=== PATIENT | female | born 1945 | race American Indian/Alaskan Native ===

== ENCOUNTER 2016-07-28 12:34 | Emergency (ER) | payer MEDICARE, MEDICAID ==
[2016-07-28 12:34] VITALS: BMI 23.8
[2016-07-28 13:19] VITALS: O2SAT 98
--- NOTE | 2016-07-28 15:35 | C.PDOC ---
History Of Present Illness 71-year-old female, PMHx includes Hypertension, Hypercholesterolemia, depression , anxiety, Fallopian CA and Breast CA, presents to the emergency department with complaints of oral thrush and shortness of breath. Patient states that for the past few days, she has been experiencing shortness of breath because her tongue gets stuck to the roof of her mouth. For the past several weeks, patient wakes up with pain to submandibular region due to her tongue. Pt notes she was given a mouth wash, which she is using with minimal relief. Denies fevers, chills, chest pain, back pain, dizziness or any other associated symptoms. No other complaints at this time. Patient notes that she was seen by her oncologist , Dr Johnston yesterday. Time Seen by Provider: 07/28/16 14:05 Chief Complaint (Nursing): GI Problem History Per: Patient History/Exam Limitations: no limitations Onset/Duration Of Symptoms: Days Current Symptoms Are (Timing): Still Present Severity: Moderate Past Medical History Reviewed: Historical Data, Nursing Documentation, Vital Signs Vital Signs: Last Vital Signs Temp 97.4 F L 07/28/16 16:05 Pulse 68 07/28/16 16:05 Resp 18 07/28/16 16:05 BP 142/82 07/28/16 16:05 Pulse Ox 98 07/30/16 11:49 - Medical History PMH: Anxiety, Arthritis, COPD (heavy smoker), Depression, HTN, Hypercholesterolemia, Malignancy (BREAST) Denies: Chronic Kidney Disease Family History: States: Unknown Family Hx - Social History Hx Tobacco Use: Yes Hx Alcohol Use: No Hx Substance Use: No - Immunization History Hx Tetanus Toxoid Vaccination: No Hx Influenza Vaccination: No Hx Pneumococcal Vaccination: No Review Of Systems Except As Marked, All Systems Reviewed And Found Negative. Constitutional: Negative for: Fever, Chills Respiratory: Positive for: Shortness of Breath Gastrointestinal: Positive for: Vomiting Musculoskeletal: Negative for: Neck Pain, Back Pain Skin: Negative for: Rash Neurological: Negative for: Weakness, Numbness, Headache, Dizziness Physical Exam - Physical Exam Appears: Non-toxic, No Acute Distress, Unkempt, Other (thin, frail.) Skin: Warm, Dry, No Rash Head: Atraumatic, Normacephalic Eye(s): bilateral: Normal Inspection, PERRL Nose: Normal Tongue: Other ((+)thrush) Teeth: Other (poor dental hygiene.) Cardiovascular: Murmur Respiratory: Normal Breath Sounds, No Accessory Muscle Use Gastrointestinal/Abdominal: Soft, No Tenderness Extremity: Normal ROM Neurological/Psych: Oriented x3, Normal Speech ED Course And Treatment O2 Sat by Pulse Oximetry: 98 Disposition Counseled Patient/Family Regarding: Diagnosis, Need For Followup, Rx Given - Disposition Disposition: HOME/ ROUTINE Disposition Time: 15:48 Condition: STABLE Additional Instructions: Follow up with your doctor this week. Prescriptions: Fluconazole 200 mg PO DAILY #14 tablet Fluconazole 200 mg PO DAILY #14 tablet Instructions: Oral Candidiasis (ED) Forms: General Discharge Instructions - POA Present On Arrival: None - Clinical Impression Clinical Impression: Candidiasis of mouth and esophagus - Scribe Statement The provider has reviewed the documentation as recorded by the Shubham Robison All medical record entries made by the Silkeibjudith were at my direction and personally dictated by me. I have reviewed the chart and agree that the record accurately reflects my personal performance of the history, physical exam, medical decision making, and the department course for this patient. I have also personally directed, reviewed, and agree with the discharge instructions and disposition.
[2016-07-28 16:12] VITALS: BP 142/82; PULSE 68; RESP 18; TEMP 97.4
== END 2016-07-28 16:08 | disposition home or self-care (01) ==
LOC: C.ER 12:34
DX: B37.0 Candidal stomatitis (principal); B37.81 Candidal esophagitis

== ENCOUNTER 2016-10-13 21:49 | Observation (INO) | payer MEDICARE, MEDICAID ==
[2016-10-13 21:49] VITALS: BMI 23.8
--- NOTE | 2016-10-13 23:49 | C.PDOC ---
Time Seen by Provider: 10/13/16 23:49 Chief Complaint (Nursing): Anxiety Past Medical History Vital Signs: Last Vital Signs Temp 97.5 F L 10/13/16 21:59 Pulse 79 10/13/16 21:59 Resp 24 10/13/16 21:59 BP 152/67 H 10/13/16 21:59 Pulse Ox 100 10/13/16 21:59 - Medical History PMH: Anxiety, Arthritis, COPD (heavy smoker), Depression, HTN, Hypercholesterolemia, Malignancy (BREAST) Denies: Chronic Kidney Disease Family History: States: Unknown Family Hx - Social History Hx Tobacco Use: Yes Hx Alcohol Use: No Hx Substance Use: No - Immunization History Hx Tetanus Toxoid Vaccination: No Hx Influenza Vaccination: No Hx Pneumococcal Vaccination: No ED Course And Treatment O2 Sat by Pulse Oximetry: 100 Disposition Counseled Patient/Family Regarding: Studies Performed, Diagnosis - Disposition Disposition Time: 23:49
[2016-10-14 00:37] LABS: BASO # 0.1 K/uL (0.0-0.2); BASO % 1.2 % (0.0-2.0); EOS # 0.2 K/uL (0.0-0.7); EOS % 3.1 % (0.0-4.0); HEMATOCRIT 39.3 % (34.0-47.0); LYMPH # 2.5 K/uL (1.0-4.3); LYMPH % 33.7 % (20.0-40.0); MEAN CELL VOLUME 88.4 fL (81.0-99.0); MEAN CORPUSCULAR HEMOGLOBIN 30.1 pg (27.0-31.0); MEAN CORPUSCULAR HGB CONC 34.1 g/dL (33.0-37.0); MEAN PLATELET VOLUME 7.2 fL (7.2-11.7); MONO # 0.5 K/uL (0.0-0.8); MONO % 7.3 % (0.0-10.0); WHITE BLOOD COUNT 7.5 K/uL (4.8-10.8)
--- NOTE | 2016-10-14 00:45 | C.PDOC ---
History Of Present Illness <Laith Norris - Last Filed: 10/14/16 00:42> <Jose Buenrostro - Last Filed: 10/14/16 03:25> 71 y/o F c PMHx anxiety p/w palpitations and leg burning x 3 hours. Patient states that she was at home when she suddenly began having upper leg burning paresthesias and then began having palpitations. She denies chest pain, dyspnea , nausea, vomiting, motor weakness. (Laith Norris) <Laith Norris - Last Filed: 10/14/16 00:42> <Jose Buenrostro - Last Filed: 10/14/16 03:25> Time Seen by Provider: 10/13/16 23:49 Chief Complaint (Nursing): Anxiety Past Medical History - Medical History PMH: Anxiety, Arthritis, COPD (heavy smoker), Depression, HTN, Hypercholesterolemia, Malignancy (BREAST) Denies: Chronic Kidney Disease Family History: States: Unknown Family Hx - Social History Hx Tobacco Use: Yes Hx Alcohol Use: No Hx Substance Use: No - Immunization History Hx Tetanus Toxoid Vaccination: No Hx Influenza Vaccination: No Hx Pneumococcal Vaccination: No <Laith Norris - Last Filed: 10/14/16 00:42> Reviewed: Historical Data, Nursing Documentation, Vital Signs <Jose Buenrostro - Last Filed: 10/14/16 03:25> Vital Signs: Last Vital Signs Temp 97.4 F L 10/14/16 02:48 Pulse 56 L 10/14/16 02:48 Resp 18 10/14/16 02:48 BP 137/61 10/14/16 02:48 Pulse Ox 100 10/14/16 02:48 Review Of Systems Except As Marked, All Systems Reviewed And Found Negative. Constitutional: Negative for: Fever Cardiovascular: Negative for: Chest Pain <Laith Norris - Last Filed: 10/14/16 00:42> Physical Exam - Physical Exam Appears: No Acute Distress Skin: Normal Color, No Rash Head: Atraumatic, Normacephalic Eye(s): bilateral: PERRL Oral Mucosa: Moist Neck: Normal, Supple Cardiovascular: Rhythm Regular Respiratory: No Accessory Muscle Use Gastrointestinal/Abdominal: Soft, No Tenderness Back: No CVA Tenderness Extremity: Normal ROM, No Tenderness, No Pedal Edema, No Deformity, No Swelling Pulses: Left Radial: Normal, Right Radial: Normal Neurological/Psych: Oriented x3 <Laith Norris - Last Filed: 10/14/16 00:42> ED Course And Treatment - Laboratory Results Result Diagrams: 10/14/16 00:34 O2 Sat by Pulse Oximetry: 100 <Laith Norris - Last Filed: 10/14/16 00:42> - Laboratory Results Result Diagrams: 10/14/16 00:34 10/14/16 00:34 ECG: Interpreted By Me, Viewed By Me ECG Rhythm: Sinus Tachycardia (112), Nonspecific Changes (frequent pvc's) Pulse Ox Interpretation: Normal - Radiology CXR: Interpreted by Me, Viewed By Me CXR Interpretation: No: Infiltrates, Fracture, Pnemothorax <Jose Buenrostro - Last Filed: 10/14/16 03:25> Medical Decision Making <Laith Norris - Last Filed: 10/14/16 00:42> <PorterJesenia - Last Filed: 10/14/16 03:25> Medical Decision Making: EKG shows sinus rhythm 112, frequent PVCs, no ST elevations. At bedside, HR normal, continues to have PVCs. Patient states palpitations are gone. Upper leg burning feeling persists. Will check electrolytes, keep on telemetry. Will sign out to ER night team at end of shift. Patient without SI/HI /hallucinations. (Laith Norris) Disposition <MyrnaLaith Howe - Last Filed: 10/14/16 00:42> Discussed With : Blayne Quintero Comment: accepted the pt on his service and took over the care at 3:24 AM Doctor Will See Patient In The: ED Counseled Patient/Family Regarding: Studies Performed, Diagnosis, Need For Followup - Disposition Disposition Time: 02:00 - POA Present On Arrival: Poor Glycemic Control <PorterJeseniamayo - Last Filed: 10/14/16 03:25> - Disposition Disposition: HOSPITALIZED Condition: FAIR - Clinical Impression Clinical Impression: Anxiety, Palpitations, Chest pain Decision To Admit <MyrnaLaith Howe - Last Filed: 10/14/16 00:42> - Pt Status Changed To: Hospital Disposition Of: Observation - . Bed Request Type: Telemetry Admitting Physician: Blayne Quintero <Jose Buenrostro - Last Filed: 10/14/16 03:25> - . Patient Diagnosis: Anxiety, Palpitations, Chest pain
[2016-10-14 00:50] LABS: CHLORIDE 103 mmol/L (98-107)
[2016-10-14 00:51] LABS: POTASSIUM 3.1 mmol/L (3.6-5.2); SODIUM 137 mmol/L (132-148)
[2016-10-14 00:53] LABS: ALB/GLOB RATIO 1.3 (1.0-2.1); ALKALINE PHOSPHATASE 111 U/L (38-126); AST/SGOT 20 U/L (14-36); BILIRUBIN,TOTAL 0.4 mg/dL (0.2-1.3); BLOOD UREA NITROGEN 11 mg/dL (7-17); CARBON DIOXIDE 24 mmol/L (22-30); GFR AFRICAN-AMERICAN > 60; TOTAL PROTEIN 6.7 g/dL (6.3-8.3)
[2016-10-14 00:54] LABS: ALT/SGPT 11 U/L (9-52); CALCIUM 8.9 mg/dl (8.6-10.4); GLUCOSE,RANDOM 106 mg/dL (65-105); MAGNESIUM 1.9 mg/dL (1.6-2.3); PHOSPHOROUS 3.7 mg/dL (2.5-4.5)
[2016-10-14] MEDS ORDERED: Potassium Chloride 10 mEq ER Tab PO STA (01:56)
[2016-10-14] MEDS ORDERED: Potassium Chloride 10 mEq ER Tab PO ONE (02:32)
--- NOTE | 2016-10-14 03:48 | CP.PCM.HP ---
<Elizabeth Reeder - Last Filed: 10/14/16 05:33> History of Present Illness - History of Present Illness History of Present Illness: CC - " I am worried about my leg pain and palpitations" HPI - 71 y/o F c PMHx as listed below complains of anxiety p/w palpitations and leg burning x 3 hours. Patient states that she was at home in bed watching tv when she suddenly began having upper leg burning paresthesias and then began having palpitations. She said her legs "felt hot from the inside" from her knees up to her hips. She denies weakness, numbness or tingling. She got worried about this can then felt like her heart was beating fast and irregular. She then called [facility] and asked them what to do and they told her to come to the emergency room. Upon arrival to the emergency room these symptoms resolved. 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 She denies chest pain, fever/chills, headache, dyspnea, nausea, vomiting, abd pain, diarrhea/constipation or urinary complaints. She states she recently had a D/C done and they "left something in there" so she is planning to go back to surgery with Dr. Salazar to remove this item. She was unable to name what this item was. She reports being under a lot of stress recently. She states that she was diagnosed with a cardiac murmur at but never was on cardiac medication and never had surgery for this. She has never had a cardiac cath or a stress test performed. PMHx - anxiety, depression, arthritis, COPD, hypertension, hyperlipidemia, breast ca (diagnosed 2000 had surg, chemo completed) Surg - mastectomy L sided can't remember year (lung was punctured which led to increased hospital stay in intensive care), fallopian tube removal 2002 Meds - Busipirone 5mg PO HS, Amlodipine 5mg PO daily, Crestor 5 mg PO HS, Paxil 20mg PO daily, Klonipin 0.5mg PO QID, Restasis eye drops Allergies- aspirin (nausea), ibuprofen, penicillin, iodixanol, toradol amoxicillin FamHx - 2 of her sisters has strokes, father had "heart problems" mother had breast cancer, another sister has breat cancer Social - denies alcohol uses, has smoked a pack a day for 23 years has quit on and off, denies drug use. lives alone in [facility] Psych - states she is very anxious, her mother in May and her sister is dying of cancer now PMD: Dr. 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 absent: Chest Pain, Chest Pain at Rest, Pedal Edema, Syncope - Respiratory Respiratory: absent: Cough, Dyspnea on Exertion - Gastrointestinal Gastrointestinal: absent: Abdominal Pain, Constipation, Diarrhea, Nausea, Vomiting - Genitourinary Genitourinary: absent: Change in Urinary Stream, Difficulty Urinating - Musculoskeletal Musculoskeletal: absent: Numbness, Tingling - Neurological Neurological: absent: Dizziness Past Patient History - Infectious Disease Hx of Infectious Diseases: None - Past Social History Smoking Status: Light Smoker < 10 Cigarettes Daily - CARDIAC Hx Hypercholesterolemia: Yes Hx Hypertension: Yes - PULMONARY Hx Chronic Obstructive Pulmonary Disease (COPD): Yes (heavy smoker) - NEUROLOGICAL Hx Neurological Disorder: No - HEENT Hx HEENT Problems: No - RENAL Hx Chronic Kidney Disease: No - ENDOCRINE/METABOLIC Hx Endocrine Disorders: No - HEMATOLOGICAL/ONCOLOGICAL Hx Blood Disorders: Yes (SEE COMMENT) Hx Cancer: Yes (LEFT BREAST CA) Other/Comment: Breast CA with chemotherapy () - INTEGUMENTARY Hx Dermatological Problems: Yes (SEE COMMENT) Other/Comment: treated for 3 weeks with a cream mometasone furoate 1% due to rash in her arms bilaterraly s/p bed bug fumigationpt has no rash noted on arms at this time - MUSCULOSKELETAL/RHEUMATOLOGICAL Hx Arthritis: Yes - GASTROINTESTINAL Hx Gastrointestinal Disorders: No - GENITOURINARY/GYNECOLOGICAL Hx Genitourinary Disorders: No - PSYCHIATRIC Hx Anxiety: Yes Hx Depression: Yes Hx Substance Use: No - SURGICAL HISTORY Hx Surgeries: Yes Hx Hysterectomy: Yes Hx Mastectomy: Yes (LEFT BREAST) - ANESTHESIA Hx Anesthesia: Yes Hx Anesthesia Reactions: No Hx Malignant Hyperthermia: No Meds Allergies/Adverse Reactions: Allergies Allergy/AdvReac Type Severity Reaction Status Date / Time amoxicillin Allergy Verified 10/13/16 21:58 aspirin Allergy NAUSEA Verified 07/28/16 13:55 ibuprofen Allergy DIARRHEA Verified 07/28/16 13:55 iodixanol [From Visipaque] Allergy Verified 07/28/16 13:55 ketorolac tromethamine Allergy VOMITING Verified 07/28/16 13:55 [From Toradol] Penicillins Allergy RASH Verified 07/28/16 13:55 Physical Exam - Constitutional Appears: Non-toxic, No Acute Distress - Head Exam Head Exam: ATRAUMATIC, NORMAL INSPECTION - Eye Exam Eye Exam: EOMI, Normal appearance, PERRL Pupil Exam: NORMAL ACCOMODATION - ENT Exam ENT Exam: Mucous Membranes Dry - Respiratory Exam Respiratory Exam: Clear to Auscultation Bilateral, NORMAL BREATHING PATTERN. absent: Rales, Rhonchi, Wheezes, Respiratory Distress - Cardiovascular Exam Cardiovascular Exam: REGULAR RHYTHM, +S1, +S2 - GI/Abdominal Exam GI & Abdominal Exam: Normal Bowel Sounds, Soft. absent: Distended, Firm, Guarding, Tenderness - Extremities Exam Extremities exam: Positive for: normal inspection. Negative for: calf tenderness, pedal edema - Back Exam Back exam: NORMAL INSPECTION. absent: CVA tenderness (L), CVA tenderness (R), paraspinal tenderness - Neurological Exam Neurological exam: Alert, Normal Gait, Oriented x3 - Psychiatric Exam Psychiatric exam: Anxious, Normal Affect, Normal Mood Results - Vital Signs Recent Vital Signs: Last Vital Signs Temp 97.4 F L 10/14/16 02:48 Pulse 56 L 10/14/16 02:48 Resp 18 10/14/16 02:48 BP 137/61 10/14/16 02:48 Pulse Ox 100 10/14/16 02:48 - Labs Result Diagrams: 10/14/16 00:34 10/14/16 00:34 Labs: Laboratory Results - last 24 hr 10/14/16 10/14/16 00:34 00:34 WBC 7.5 RBC 4.45 Hgb 13.4 Hct 39.3 MCV 88.4 MCH 30.1 MCHC 34.1 RDW 15.0 H Plt Count 338 MPV 7.2 Neut % (Auto) 54.7 Lymph % (Auto) 33.7 [place] % (Auto) 7.3 Eos % (Auto) 3.1 Baso % (Auto) 1.2 Neut # 4.1 Lymph # 2.5 [place] # 0.5 Eos # 0.2 Baso # 0.1 Sodium 137 Potassium 3.1 L Chloride 103 Carbon Dioxide 24 Anion Gap 13 BUN 11 Creatinine 0.7 Est GFR ( Amer) > 60 Est GFR (Non-Af Amer) > 60 Random Glucose 106 H Calcium 8.9 Phosphorus 3.7 Magnesium 1.9 Total Bilirubin 0.4 AST 20 ALT 11 Alkaline Phosphatase 111 Total Creatine Kinase 109 Troponin I 0.0170 Total Protein 6.7 Albumin 3.8 Globulin 2.9 Albumin/Globulin Ratio 1.3 Assessment & Plan - Assessment and Plan (Free Text) Assessment: Palpitations Resolved in ED EKG - sinus tach with PVCs Chest X ray - no acute disease Troponin was negative, will follow up with trops every 6 hours Echo from 08.10 showed EF 55-60%, mild pulmonary hypertension, mild aortic regurg , trace yris regurg f/u am labs, lipid panel, tsh, hba1c consider cardiology consult for stress test Hypokalemia K 3.1 Mg 1.9 Given 20 meq KCL in the ED, will given another 40meq orally to replace HTN Amlodipine 5mg PO daily Hyperlipidemia Crestor 5mg PO HS Anxiety/depression Busipirone 5mg PO HS Paxil 20mg PO daily Klonipin 0.5 mg PO QID Prophylactic Measures Pepcid 20mg PO BID SCDs Heart healthy diet Monitor on telemetry <Blayne Quintero - Last Filed: 10/14/16 06:33> Results - Vital Signs Recent Vital Signs: Last Vital Signs Temp 97.6 F 10/14/16 04:44 Pulse 54 L 10/14/16 04:44 Resp 20 10/14/16 04:44 BP 153/63 H 10/14/16 04:44 Pulse Ox 100 10/14/16 04:44 - Labs Result Diagrams: 10/14/16 00:34 10/14/16 00:34 Assessment & Plan - Date & Time Date: 10/14/16 (I have seen and examined the patient. I agree with the findings and plan of care as documented by Dr. Reeder. Patient with palpitations. Denies chest pain. ROMIx3 with EKG. Monitor on tele. Consult to cardio. Replete potassium for hypokalemia. Amlodipine for history of hypertension. Monitor for acute changes.) Time: 06:32 Attending/Attestation - Attestation I have personally seen and examined this patient.: Yes I have fully participated in the care of the patient.: Yes I have reviewed all pertinent clinical information: Yes
[2016-10-14] MEDS ORDERED: Potassium Chloride 20 mEq ER Tab PO STA ×2 (05:47→10:18)
--- NOTE | 2016-10-14 09:01 | RAD ---
HISTORY: palpitations COMPARISON: 02/13/2016 FINDINGS: LUNGS: No active pulmonary disease. PLEURA: No significant pleural effusion identified, no pneumothorax apparent. CARDIOVASCULAR: Normal. OSSEOUS STRUCTURES: No significant abnormalities. VISUALIZED UPPER ABDOMEN: Normal. OTHER FINDINGS: None. IMPRESSION: No active disease.
[2016-10-14 11:20] LABS: BASO # 0.1 K/uL (0.0-0.2); BASO % 1.2 % (0.0-2.0); EOS # 0.2 K/uL (0.0-0.7); EOS % 2.9 % (0.0-4.0); HEMATOCRIT 39.6 % (34.0-47.0); LYMPH # 2.1 K/uL (1.0-4.3); LYMPH % 33.7 % (20.0-40.0); MEAN CELL VOLUME 87.7 fL (81.0-99.0); MEAN CORPUSCULAR HEMOGLOBIN 29.8 pg (27.0-31.0); MEAN PLATELET VOLUME 7.3 fL (7.2-11.7); MONO # 0.5 K/uL (0.0-0.8); RED CELL DISTRIBUTION WIDTH 14.8 % (11.5-14.5); WHITE BLOOD COUNT 6.1 K/uL (4.8-10.8)
[2016-10-14 11:27] LABS: CHLORIDE 103 mmol/L (98-107); POTASSIUM 3.5 mmol/L (3.6-5.2); SODIUM 136 mmol/L (132-148)
[2016-10-14 11:29] LABS: ALB/GLOB RATIO 1.1 (1.0-2.1); AST/SGOT 20 U/L (14-36); BILIRUBIN,TOTAL 0.4 mg/dL (0.2-1.3); CARBON DIOXIDE 25 mmol/L (22-30); CHOLESTEROL 207 mg/dL (0-199); GFR AFRICAN-AMERICAN > 60; TOTAL PROTEIN 6.9 g/dL (6.3-8.3)
[2016-10-14 11:30] LABS: ALKALINE PHOSPHATASE 104 U/L (38-126); ALT/SGPT 19 U/L (9-52); BLOOD UREA NITROGEN 8 mg/dL (7-17); GLUCOSE,RANDOM 93 mg/dL (65-105); PHOSPHOROUS 3.1 mg/dL (2.5-4.5)
[2016-10-14 12:34] LABS: THYROID STIMULATING HORMONE 2.36 mIU/L (0.46-4.68)
--- NOTE | 2016-10-14 13:03 | CP.PCM.CON ---
<Marcel Tariq - Last Filed: 10/14/16 13:04> History of Present Illness - History of Present Illness History of Present Illness: Consult Note for Dr. Carey Reason for consult: Palpitations 71 y/o F with PMH of anxiety, depression, HTN, HLD, COPD, breast, and ovarian cancer presented to the ED on 10/13/16 for initial complaint of burning in the legs and palpitations. Pt states she was at home watching TV when all of sudden she began to feel severe burning down her legs bilaterally. At this time, she began developing an increased heart rate and palpitations. Pt became worried and called her local pharmacy who directed her to the emergency room. In the ED , the patient states her palpitations resolved on its own. Initial EKG showed sinus tachycardia with PVC's. Repeat EKG the next morning showed sinus bradycardia with no PVC's. Initial troponin was also negative. Pt does admit to being more stressed than usual lately. Denies CP, SOB, N/V/D, fever, chills, recent illnesses. PMH: Anxiety, depression, HTN, HLD, COPD, breast, and ovarian cancer Surgical hx: Left sided mastectomy Social Hx: Smoked 1 ppd x 20 years. Denies alcohol or illicit drug use FMH: Cardiac issues, unsure of specific diagnoses Medication: See MAR Allergies: amoxicillin, ASA, ibuprofen, iodixanol, toradol, penicillin Review of Systems - Constitutional Constitutional: absent: Fatigue, Fever, Lethargy - EENT Eyes: absent: Blurred Vision, Change in Vision - Cardiovascular Cardiovascular: Palpitations. absent: Chest Pain, Irregular Heart Rhythm - Respiratory Respiratory: absent: Cough, Dyspnea - Gastrointestinal Gastrointestinal: absent: Abdominal Pain, Diarrhea, Vomiting - Genitourinary Genitourinary: absent: Dysuria, Hematuria - Integumentary Integumentary: absent: New Lesions, Rash - Neurological Neurological: Numbness, Radicular Pain, Tingling. absent: Syncope Past Patient History - Infectious Disease Hx of Infectious Diseases: None - Past Social History Smoking Status: Light Smoker < 10 Cigarettes Daily - CARDIAC Hx Hypercholesterolemia: Yes Hx Hypertension: Yes - PULMONARY Hx Chronic Obstructive Pulmonary Disease (COPD): Yes (heavy smoker) - NEUROLOGICAL Hx Neurological Disorder: No - HEENT Hx HEENT Problems: No - RENAL Hx Chronic Kidney Disease: No - ENDOCRINE/METABOLIC Hx Endocrine Disorders: No - HEMATOLOGICAL/ONCOLOGICAL Hx Blood Disorders: Yes (SEE COMMENT) Hx Cancer: Yes (LEFT BREAST CA) Other/Comment: Breast CA with chemotherapy () - INTEGUMENTARY Hx Dermatological Problems: Yes (SEE COMMENT) Other/Comment: treated for 3 weeks with a cream mometasone furoate 1% due to rash in her arms bilaterraly s/p bed bug fumigationpt has no rash noted on arms at this time - MUSCULOSKELETAL/RHEUMATOLOGICAL Hx Falls: No - GASTROINTESTINAL Hx Gastrointestinal Disorders: No - GENITOURINARY/GYNECOLOGICAL Hx Genitourinary Disorders: No - PSYCHIATRIC Hx Substance Use: No - SURGICAL HISTORY Hx Surgeries: Yes Hx Hysterectomy: Yes Hx Mastectomy: Yes (LEFT BREAST) - ANESTHESIA Hx Anesthesia: Yes Hx Anesthesia Reactions: No Hx Malignant Hyperthermia: No Meds Allergies/Adverse Reactions: Allergies Allergy/AdvReac Type Severity Reaction Status Date / Time amoxicillin Allergy Verified 10/13/16 21:58 aspirin Allergy NAUSEA Verified 07/28/16 13:55 ibuprofen Allergy DIARRHEA Verified 07/28/16 13:55 iodixanol [From Visipaque] Allergy Verified 07/28/16 13:55 ketorolac tromethamine Allergy VOMITING Verified 07/28/16 13:55 [From Toradol] Penicillins Allergy RASH Verified 07/28/16 13:55 - Medications Medications: Current Medications Amlodipine Besylate (Norvasc) 5 mg PO HS [facility] Buspirone HCl (Buspar) 5 mg PO HS [facility] Clonazepam (Klonopin) 0.5 mg PO QID [facility] Last Admin: 10/14/16 09:28 Dose: Not Given Famotidine (Pepcid) 20 mg PO BID [facility] Last Admin: 10/14/16 09:29 Dose: Not Given Paroxetine HCl (Paxil) 20 mg PO DAILY [facility] Last Admin: 10/14/16 09:27 Dose: 20 mg Rosuvastatin Calcium (Crestor) 5 mg PO HS [facility] Physical Exam - Constitutional Appears: Well, No Acute Distress - Head Exam Head Exam: ATRAUMATIC, NORMAL INSPECTION, NORMOCEPHALIC - ENT Exam ENT Exam: Mucous Membranes Moist - Respiratory Exam Respiratory Exam: Clear to Auscultation Bilateral, NORMAL BREATHING PATTERN. absent: Rales, Rhonchi - Cardiovascular Exam Cardiovascular Exam: RRR, +S1, +S2 - GI/Abdominal Exam GI & Abdominal Exam: Normal Bowel Sounds, Soft. absent: Tenderness - Extremities Exam Extremities exam: Positive for: normal inspection - Neurological Exam Neurological exam: Alert, Oriented x3 - Skin Skin Exam: Intact, Normal Color, Warm Results - Vital Signs Recent Vital Signs: Last Vital Signs Temp 97.5 F L 10/14/16 08:57 Pulse 58 L 10/14/16 08:57 Resp 20 10/14/16 08:57 BP 147/60 10/14/16 08:57 Pulse Ox 100 10/14/16 08:57 - Labs Result Diagrams: 10/14/16 11:07 10/14/16 11:07 Labs: Laboratory Results - last 24 hr 10/14/16 10/14/16 10/14/16 11:07 11:07 11:07 WBC 6.1 RBC 4.51 Hgb 13.4 Hct 39.6 MCV 87.7 MCH 29.8 MCHC 34.0 RDW 14.8 H Plt Count 372 MPV 7.3 Neut % (Auto) 54.2 Lymph % (Auto) 33.7 Hubbard % (Auto) 8.0 Eos % (Auto) 2.9 Baso % (Auto) 1.2 Neut # 3.3 Lymph # 2.1 Hubbard # 0.5 Eos # 0.2 Baso # 0.1 Sodium 136 Potassium 3.5 L Chloride 103 Carbon Dioxide 25 Anion Gap 12 BUN 8 Creatinine 0.6 L Est GFR ( Amer) > 60 Est GFR (Non-Af Amer) > 60 Random Glucose 93 Hemoglobin A1c Calcium 9.0 Phosphorus 3.1 Magnesium 2.0 Total Bilirubin 0.4 AST 20 ALT 19 Alkaline Phosphatase 104 Total Protein 6.9 Albumin 3.6 Globulin 3.3 Albumin/Globulin Ratio 1.1 Triglycerides 59 Cholesterol 207 H LDL Cholesterol Direct 132 H HDL Cholesterol 51 Free T4 0.82 TSH 3rd Generation 2.36 10/14/16 11:07 WBC RBC Hgb Hct MCV MCH MCHC RDW Plt Count MPV Neut % (Auto) Lymph % (Auto) Hubbard % (Auto) Eos % (Auto) Baso % (Auto) Neut # Lymph # Hubbard # Eos # Baso # Sodium Potassium Chloride Carbon Dioxide Anion Gap BUN Creatinine Est GFR ( Amer) Est GFR (Non-Af Amer) Random Glucose Hemoglobin A1c 5.7 Calcium Phosphorus Magnesium Total Bilirubin AST ALT Alkaline Phosphatase Total Protein Albumin Globulin Albumin/Globulin Ratio Triglycerides Cholesterol LDL Cholesterol Direct HDL Cholesterol Free T4 TSH 3rd Generation Assessment & Plan (1) Palpitations Assessment and Plan: EKG (10/13) - Sinus tachycardia with PVC's EKG (10/14) - Sinus bradycardia Troponin negative x 1 Resolution of symptoms in ED Also possibly due to hx of anxiety Pt will be scheduled for pharmacologic stress test in AM Status: Acute <Dalila Carey - Last Filed: 10/15/16 09:12> Meds - Medications Medications: Current Medications Amlodipine Besylate (Norvasc) 5 mg PO HS [facility] Last Admin: 10/14/16 21:40 Dose: 5 mg Buspirone HCl (Buspar) 5 mg PO HS [facility] Clonazepam (Klonopin) 0.5 mg PO QID [facility] Last Admin: 10/14/16 21:40 Dose: 0.5 mg Famotidine (Pepcid) 20 mg PO BID [facility] Last Admin: 10/14/16 17:42 Dose: Not Given Heparin Sodium (Porcine) (Heparin) 5,000 units SC Q8 [facility] Paroxetine HCl (Paxil) 20 mg PO DAILY [facility] Last Admin: 10/14/16 09:27 Dose: 20 mg Rosuvastatin Calcium (Crestor) 5 mg PO HS [facility] Last Admin: 10/14/16 21:40 Dose: 5 mg Results - Vital Signs Recent Vital Signs: Last Vital Signs Temp 97.5 F L 10/15/16 07:53 Pulse 65 10/15/16 07:53 Resp 20 10/15/16 07:53 BP 146/70 10/15/16 07:53 Pulse Ox 99 10/15/16 07:53 - Labs Result Diagrams: 10/15/16 06:09 10/15/16 06:09 Labs: Laboratory Results - last 24 hr 10/14/16 10/14/16 10/14/16 11:07 11:07 11:07 WBC 6.1 RBC 4.51 Hgb 13.4 Hct 39.6 MCV 87.7 MCH 29.8 MCHC 34.0 RDW 14.8 H Plt Count 372 MPV 7.3 Neut % (Auto) 54.2 Lymph % (Auto) 33.7 Hubbard % (Auto) 8.0 Eos % (Auto) 2.9 Baso % (Auto) 1.2 Neut # 3.3 Lymph # 2.1 Hubbard # 0.5 Eos # 0.2 Baso # 0.1 Sodium 136 Potassium 3.5 L Chloride 103 Carbon Dioxide 25 Anion Gap 12 BUN 8 Creatinine 0.6 L Est GFR ( Amer) > 60 Est GFR (Non-Af Amer) > 60 Random Glucose 93 Hemoglobin A1c Calcium 9.0 Phosphorus 3.1 Magnesium 2.0 Total Bilirubin 0.4 AST 20 ALT 19 Alkaline Phosphatase 104 Total Creatine Kinase Cancelled CK-MB (Mass) Cancelled Troponin I, Quant Cancelled Total Protein 6.9 Albumin 3.6 Globulin 3.3 Albumin/Globulin Ratio 1.1 Triglycerides 59 Cholesterol 207 H LDL Cholesterol Direct 132 H HDL Cholesterol 51 Free T4 0.82 TSH 3rd Generation 2.36 10/14/16 10/14/16 10/15/16 11:07 13:05 06:09 WBC 5.9 RBC 4.71 Hgb 13.8 Hct 41.4 MCV 87.9 MCH 29.3 MCHC 33.3 RDW 14.8 H Plt Count 381 MPV 7.0 L Neut % (Auto) 38.6 L Lymph % (Auto) 47.5 H Hubbard % (Auto) 9.2 Eos % (Auto) 3.5 Baso % (Auto) 1.2 Neut # 2.3 Lymph # 2.8 Hubbard # 0.5 Eos # 0.2 Baso # 0.1 Sodium Potassium Chloride Carbon Dioxide Anion Gap BUN Creatinine Est GFR ( Amer) Est GFR (Non-Af Amer) Random Glucose Hemoglobin A1c 5.7 Calcium Phosphorus Magnesium Total Bilirubin AST ALT Alkaline Phosphatase Total Creatine Kinase 111 CK-MB (Mass) 0.45 Troponin I, Quant < 0.0120 Total Protein Albumin Globulin Albumin/Globulin Ratio Triglycerides Cholesterol LDL Cholesterol Direct HDL Cholesterol Free T4 TSH 3rd Generation 10/15/16 06:09 WBC RBC Hgb Hct MCV MCH MCHC RDW Plt Count MPV Neut % (Auto) Lymph % (Auto) Hubbard % (Auto) Eos % (Auto) Baso % (Auto) Neut # Lymph # Hubbard # Eos # Baso # Sodium 137 Potassium 3.7 Chloride 103 Carbon Dioxide 24 Anion Gap 14 BUN 11 Creatinine 0.8 Est GFR ( Amer) > 60 Est GFR (Non-Af Amer) > 60 Random Glucose 91 Hemoglobin A1c Calcium 9.1 Phosphorus 4.1 Magnesium 2.1 Total Bilirubin 0.7 AST 23 ALT 14 Alkaline Phosphatase 97 Total Creatine Kinase CK-MB (Mass) Troponin I, Quant Total Protein 7.0 Albumin 3.8 Globulin 3.2 Albumin/Globulin Ratio 1.2 Triglycerides Cholesterol LDL Cholesterol Direct HDL Cholesterol Free T4 TSH 3rd Generation Attending/Attestation - Attestation I have personally seen and examined this patient.: Yes I have fully participated in the care of the patient.: Yes I have reviewed all pertinent clinical information: Yes Notes (Text): 10/15/16 09:11 follow up troponins, echo possibl estress inpt vs outpt pending results
--- NOTE | 2016-10-14 14:07 | CP.PCM.PN ---
<Abmer Cuevas - Last Filed: 10/14/16 23:06> Subjective - Date & Time of Evaluation Date of Evaluation: 10/14/16 Time of Evaluation: 14:07 - Subjective Subjective: Medicine Progress Note- Dr. Trujillo Service Patient is seen and examined at bedside in no acute distress. Patient states she is feeling better and does not have the burning sensation in her thighs today. She denies palpitations, chest pain, abdominal pain, leg pain or swelling , nausea, and vomiting. Patient became upset and sad while speaking about her recent family members illness and recent passing. Patient reports feeling depressed. Objective - Vital Signs/Intake and Output Vital Signs (last 24 hours): Temp Pulse Resp BP Pulse Ox 97.5 F L 58 L 20 147/60 100 10/14/16 08:57 10/14/16 08:57 10/14/16 08:57 10/14/16 08:57 10/14/16 08:57 - Medications Medications: Current Medications Amlodipine Besylate (Norvasc) 5 mg PO HS [facility] Buspirone HCl (Buspar) 5 mg PO HS [facility] Clonazepam (Klonopin) 0.5 mg PO QID [facility] Last Admin: 10/14/16 13:38 Dose: Not Given Famotidine (Pepcid) 20 mg PO BID [facility] Last Admin: 10/14/16 09:29 Dose: Not Given Paroxetine HCl (Paxil) 20 mg PO DAILY [facility] Last Admin: 10/14/16 09:27 Dose: 20 mg Rosuvastatin Calcium (Crestor) 5 mg PO HS [facility] - Labs Labs: 10/14/16 11:07 10/14/16 11:07 - Constitutional Appears: No Acute Distress - Head Exam Head Exam: NORMAL INSPECTION, NORMOCEPHALIC - Eye Exam Eye Exam: EOMI, Normal appearance - ENT Exam ENT Exam: Mucous Membranes Moist - Neck Exam Neck Exam: Full ROM, Normal Inspection - Respiratory Exam Respiratory Exam: Decreased Breath Sounds, Prolonged Expiratory Phase, NORMAL BREATHING PATTERN - Cardiovascular Exam Cardiovascular Exam: REGULAR RHYTHM, +S1, +S2 - GI/Abdominal Exam GI & Abdominal Exam: Soft, Normal Bowel Sounds. absent: Distended, Tenderness - Neurological Exam Neurological Exam: Alert, Awake, Oriented x3 - Psychiatric Exam Psychiatric exam: Depressed, Normal Affect - Skin Skin Exam: Dry, Intact, Normal Color, Warm Assessment and Plan (1) Palpitations Assessment & Plan: EKG - sinus tachy with PVCs Chest X ray 10/14/16 - no acute disease Troponin negative x1 Echo from 08.10 showed EF 55-60%, mild pulmonary hypertension, mild aortic regurg , trace yris regurg Lipid panel: Triglycerides-59, Cholesterol- 207, LDL-132, HDL-51, tsh 2/36. free t4 0.82, hba1c 5.7 Cardiology consult (Dr. Carey) for stress test Status: Acute (2) Anxiety and depression Assessment & Plan: Consult- Dr. Canseco, help appreciated As per Dr. Canseco, may be secondary to not taking medications properly Busipirone 5mg PO HS Paxil 20mg PO daily Klonipin 0.5 mg PO QID Status: Acute (3) Hypokalemia Assessment & Plan: K 3.1 Mg 1.9 Given 20 meq KCL in the ED, given another 40meq orally to replace Status: Acute (4) HTN (hypertension) Assessment & Plan: Norvasc 5mg PO HS Monitor vitals. Status: Acute (5) Hyperlipidemia Assessment & Plan: Crestor 5mg PO Daily Status: Acute (6) Prophylactic measure Assessment & Plan: Pepcid 20mg PO BID [facility] Heart healthy diet Monitor on telemetry Status: Acute <Kat Trujillon M - Last Filed: 10/15/16 16:49> Objective - Vital Signs/Intake and Output Vital Signs (last 24 hours): Temp Pulse Resp BP Pulse Ox 97.5 F L 60 20 134/64 99 10/15/16 15:29 10/15/16 15:29 10/15/16 15:29 10/15/16 15:29 10/15/16 15:29 Intake and Output: 10/15/16 10/15/16 06:59 18:59 Intake Total 120 Balance 120 - Labs Labs: 10/15/16 06:09 10/15/16 06:09 Attending/Attestation - Attestation I have personally seen and examined this patient.: Yes I have fully participated in the care of the patient.: Yes I have reviewed all pertinent clinical information, including history, physical exam and plan: Yes Notes (Text): 10/15/16 16:49 Patient was seen and examined at bedside with the resident Cardiology consultation is requested and will follow-up recommendations We have also requested psychiatry evaluation because of depression. I discussed the plan of care with the resident I agree with the history and physical and assessment/plan but the resident.
--- NOTE | 2016-10-14 20:36 | CON ---
DATE: 10/14/2016 CHIEF COMPLAINT AND REASON FOR CONSULTATION: The patient referred by Dr. Quintero for evaluation for depression and anxiety. The patient is well known to me, having been my patient in the office many years. She has history of depression, anxiety, as well as nicotine dependence. HISTORY OF PRESENT ILLNESS: This is the case of a 71-year-old female who has been my patient for many years with history of depression and anxiety. The patient has been taking Klonopin at home 0.5 mg 4 times a day, BuSpar 5 mg at bedtime and Paxil 20 mg daily. The patient reports that she came to the hospital because she was complaining of palpitations, burning sensation in her legs and difficulty breathing. The patient states that she was worried she was going to have a heart attack and came to the hospital for treatment. The patient has been stressed out recently. She had 3 recent deaths in the family and also one stepdaughter is currently in hospice care. The patient has a history of breast cancer, but advised to stop smoking and patient continues to smoke. The patient has been offered various modalities to stop smoking, but continues to smoke and she is worried she is going to from cancer. She also reports she has been having periods of confusion and was not sure if she was taking her medicine faithfully. The nurse on duty reported that the patient told that when she was admitted that she was taking Klonopin only at bedtime. The patient has been on benzos for many years and supposed to take it 4 times a day and also she missed a few doses of Paxil. If patient did miss a few doses of Paxil, this can trigger withdrawal symptoms from benzo as well as from SSRI which could have contributed to her clinical presentation. The patient advised to be more compliant with her meds and also to stop smoking. PAST PSYCHIATRIC HISTORY: History of depression for many years as well as anxiety, has been on Klonopin as well as BuSpar and Paxil. She was followed by Dr. Deshpande before. PAST MEDICAL HISTORY: History of COPD, breast cancer, hypertension,by history. The patient is a chronic smoker, smoking at least a pack of cigarettes a day. ALLERGIES: SHE IS ALLERGIC TO AMOXICILLIN, ASPIRIN, IBUPROFEN, KETOROLAC, PENICILLIN, IODIXANOL. PSYCHOSOCIAL HISTORY: The patient lives by herself. She is disabled secondary to her depression and anxiety. LIST OF CURRENT MEDICATIONS: Includes BuSpar 5 mg at bedtime, Paxil 20 mg daily , famotidine, Norvasc, Klonopin 0.5 mg 4 times a day, Crestor. VITAL SIGNS: Temperature is 97.9, pulse rate is 80, blood pressure is 129/69, respirations 20, oxygen sat is 97%. LABORATORY DATA: The patient's hemoglobin A1c is 5.7, creatinine is 0.6. Thyroid, free T4 0.82. REVIEW OF SYSTEMS: GENERAL: The patient is alert and oriented x 3, seen in her room, very anxious , in hospital gown. The patient states that she had a major_ panic attack at home that triggered her admission, but seems to be doing better. The patient is advised to stop smoking, also to be more compliant with her meds, but she has been complaining of having some increasing memory problems recently. SKIN: No diaphoresis. HEENT: No headache or dizziness. NECK: Supple. RESPIRATORY: No dyspnea. CARDIOVASCULAR: No chest pain or palpitation. GASTROINTESTINAL: She is eating. EXTREMITIES: The patient moving extremities. MUSCULOSKELETAL: Feels weak. NEUROLOGIC: Alert, oriented x 3. GENITOURINARY: No urinary problems. MENTAL STATUS EXAMINATION: Elderly female who looks age, oriented x 3. The patient is very anxious, somatic. Denies feeling depressed. Affect is reactive. Speech spontaneous. Thought process coherent. Thought content: The patient is preoccupied about the resent deaths of her 3 family members who from cancer as well as another family member who is on hospice care. The patient is worried that she will have recurrence of cancer, but continues to smoke despite medical advice. She said she will try to stop smoking. The patient is exhibiting no psychosis. No suicidal or homicidal ideation. Attention and memory seem to be fair. Insight and judgment fair. Impulse control is fair. IMPRESSION: History of recurrent depression and anxiety as well as nicotine dependence. PLAN AND RECOMMENDATION: The patient seen, meds reviewed. Continue patient management. Continue present psych meds. The patient is on Klonopin 0.5 mg 4 times a day. She needs to take it 4 times a day. The patient has been on benzos for many, many years. Continue Paxil 20 mg daily and then the BuSpar 5 mg at bedtime. The patient also advised to stop smoking for health reasons, especially with history of breast cancer. There is no need to change her psych medication for now. Continue treatment plan as outlined. Thank you for the consult. Mando Cantor MD cc: [phone] TT: 10/14/2016 20:35:11 Confirmation # [id number] Dictation # [id number] brda RODRIGUEZ
[2016-10-15 06:25] LABS: BASO # 0.1 K/uL (0.0-0.2); BASO % 1.2 % (0.0-2.0); EOS # 0.2 K/uL (0.0-0.7); EOS % 3.5 % (0.0-4.0); HEMATOCRIT 41.4 % (34.0-47.0); LYMPH # 2.8 K/uL (1.0-4.3); LYMPH % 47.5 % (20.0-40.0); MEAN CELL VOLUME 87.9 fL (81.0-99.0); MEAN CORPUSCULAR HEMOGLOBIN 29.3 pg (27.0-31.0); MEAN CORPUSCULAR HGB CONC 33.3 g/dL (33.0-37.0); MONO # 0.5 K/uL (0.0-0.8); MONO % 9.2 % (0.0-10.0); NRBC % 0.1 % (0.0-2.0); RED CELL DISTRIBUTION WIDTH 14.8 % (11.5-14.5); WHITE BLOOD COUNT 5.9 K/uL (4.8-10.8)
[2016-10-15] MEDS ORDERED: Aminophylline 25 mg/ml Inj ONE (07:13)
[2016-10-15 07:15] LABS: CHLORIDE 103 mmol/L (98-107); POTASSIUM 3.7 mmol/L (3.6-5.2); SODIUM 137 mmol/L (132-148)
[2016-10-15 07:17] LABS: ALB/GLOB RATIO 1.2 (1.0-2.1); ALKALINE PHOSPHATASE 97 U/L (38-126); AST/SGOT 23 U/L (14-36); BILIRUBIN,TOTAL 0.7 mg/dL (0.2-1.3); CARBON DIOXIDE 24 mmol/L (22-30); GFR AFRICAN-AMERICAN > 60
[2016-10-15 07:18] LABS: ALT/SGPT 14 U/L (9-52); BLOOD UREA NITROGEN 11 mg/dL (7-17); CALCIUM 9.1 mg/dl (8.6-10.4); GLUCOSE,RANDOM 91 mg/dL (65-105); MAGNESIUM 2.1 mg/dL (1.6-2.3); PHOSPHOROUS 4.1 mg/dL (2.5-4.5)
--- NOTE | 2016-10-15 09:11 | CP.PCM.PN ---
Subjective - Date & Time of Evaluation Date of Evaluation: 10/15/16 Time of Evaluation: 09:11 Objective - Vital Signs/Intake and Output Vital Signs (last 24 hours): Temp Pulse Resp BP Pulse Ox 97.5 F L 65 20 146/70 99 10/15/16 07:53 10/15/16 07:53 10/15/16 07:53 10/15/16 07:53 10/15/16 07:53 Intake and Output: 10/15/16 10/15/16 06:59 18:59 Intake Total 120 Balance 120 - Medications Medications: Current Medications Amlodipine Besylate (Norvasc) 5 mg PO HS [facility] Last Admin: 10/14/16 21:40 Dose: 5 mg Buspirone HCl (Buspar) 5 mg PO HS [facility] Clonazepam (Klonopin) 0.5 mg PO QID [facility] Last Admin: 10/14/16 21:40 Dose: 0.5 mg Famotidine (Pepcid) 20 mg PO BID [facility] Last Admin: 10/14/16 17:42 Dose: Not Given Heparin Sodium (Porcine) (Heparin) 5,000 units SC Q8 [facility] Paroxetine HCl (Paxil) 20 mg PO DAILY [facility] Last Admin: 10/14/16 09:27 Dose: 20 mg Rosuvastatin Calcium (Crestor) 5 mg PO HS [facility] Last Admin: 10/14/16 21:40 Dose: 5 mg - Labs Labs: 10/15/16 06:09 10/15/16 06:09 Assessment and Plan (1) Palpitations Status: Acute (2) Anxiety and depression Status: Acute (3) Hypokalemia Status: Acute (4) HTN (hypertension) Status: Acute (5) Hyperlipidemia Status: Acute (6) Prophylactic measure Status: Acute
--- NOTE | 2016-10-15 10:12 | PN ---
DATE: 10/15/2016 SUBJECTIVE: The patient is seen. The patient is being more compliant with her meds, reports no recurrent panic attacks. When seen today, she was on her way to have echo. The patient is currently doing much better, awaiting medical clearance prior to discharge. VITAL SIGNS: Temperature is 97.5, pulse rate 65, blood pressure 146/70, respirations 20, oxygen sat is 99% room air. REVIEW OF SYSTEMS: GENERAL: The patient is alert, oriented x 3, seen in her room. The patient is more cooperative. She states she has been compliant with her meds. SKIN: No diaphoresis, no pruritus. HEENT: No headache, no dizziness. NECK: Supple. RESPIRATORY: No dyspnea. CARDIOVASCULAR: No chest pain. GASTROINTESTINAL: She is eating well. EXTREMITIES: The patient is ambulatory. MUSCULOSKELETAL: Weakness, improving. NEUROLOGIC: Alert and oriented x 3. GENITOURINARY: Not complaining of urinary problems. MENTAL STATUS EXAMINATION: Elderly female, oriented x 3, seen in her room in hospital gown. Mood is much calmer. Affect is reactive. Speech spontaneous. Thought process coherent. Thought content: The patient is exhibiting no psychosis, no suicidal or homicidal ideation. Attention and memory seem to be fair. Insight and judgement fair. Impulse control is fair. IMPRESSION: History of recurrent depression and anxiety, Nicotine dependence. PLAN AND RECOMMENDATIONS: The patient seen. Meds reviewed. The patient is awaiting medical clearance. For now, to continue present psych meds. The patient' is on Paxil, Klonopin and BuSpar. Once the patient is medically cleared, patient may come back to my office for followup. The patient was also advised to stop smoking which she will try to do. The patient has been encouraged to stop smoking as the patient had 3 members of her family who recently from cancer. The patient also has history of breast cancer, but continues to smoke against medical advice. Mando Cantor MD cc: [phone] TT: 10/15/2016 10:12:09 Confirmation # [id number] Dictation # [id number] ene RODRIGUEZ
--- NOTE | 2016-10-15 10:17 | CP.PCM.PN ---
<Marcel Tariq - Last Filed: 10/15/16 10:13> Subjective - Date & Time of Evaluation Date of Evaluation: 10/15/16 Time of Evaluation: 10:14 - Subjective Subjective: Progress Note for Dr. Carey Pt seen and examined at bedside. Pt scheduled for stress test today. Pt doing well overnight with no acute events. Denies CP, SOB, N/V/D, palpitations. Objective - Vital Signs/Intake and Output Vital Signs (last 24 hours): Temp Pulse Resp BP Pulse Ox 97.5 F L 65 20 146/70 99 10/15/16 07:53 10/15/16 07:53 10/15/16 07:53 10/15/16 07:53 10/15/16 07:53 Intake and Output: 10/15/16 10/15/16 06:59 18:59 Intake Total 120 Balance 120 - Medications Medications: Current Medications Amlodipine Besylate (Norvasc) 5 mg PO [facility] Last Admin: 10/14/16 21:40 Dose: 5 mg Buspirone HCl (Buspar) 5 mg PO HS [facility] Clonazepam (Klonopin) 0.5 mg PO QID [facility] Last Admin: 10/15/16 09:34 Dose: Not Given Famotidine (Pepcid) 20 mg PO BID [facility] Last Admin: 10/15/16 10:05 Dose: Not Given Heparin Sodium (Porcine) (Heparin) 5,000 units SC Q8 [facility] Last Admin: 10/15/16 10:06 Dose: Not Given Paroxetine HCl (Paxil) 20 mg PO DAILY [facility] Last Admin: 10/15/16 10:12 Dose: 20 mg Rosuvastatin Calcium (Crestor) 5 mg PO HS [facility] Last Admin: 10/14/16 21:40 Dose: 5 mg - Labs Labs: 10/15/16 06:09 10/15/16 06:09 - Constitutional Appears: Well, No Acute Distress - Head Exam Head Exam: ATRAUMATIC, NORMAL INSPECTION, NORMOCEPHALIC - Respiratory Exam Respiratory Exam: Clear to Ausculation Bilateral, NORMAL BREATHING PATTERN. absent: Rales - Cardiovascular Exam Cardiovascular Exam: RRR, +S1, +S2 - GI/Abdominal Exam GI & Abdominal Exam: Soft, Normal Bowel Sounds. absent: Tenderness - Extremities Exam Extremities Exam: absent: Calf Tenderness, Pedal Edema - Neurological Exam Neurological Exam: Alert, Awake, Oriented x3 - Skin Skin Exam: Intact, Normal Color, Warm Assessment and Plan (1) Palpitations Assessment & Plan: Troponin negative x2 Asymptomatic at this time Pt unable to complete stress test due to inadequate IV access If echocardiogram is unremarkable, pt may be d/c and f/u with Dr. Carey in office within 1 month Status: Acute <Dalila Carey - Last Filed: 10/15/16 14:50> Objective - Vital Signs/Intake and Output Vital Signs (last 24 hours): Temp Pulse Resp BP Pulse Ox 97.5 F L 56 L 20 146/70 99 10/15/16 07:53 10/15/16 12:00 10/15/16 07:53 10/15/16 07:53 10/15/16 07:53 Intake and Output: 10/15/16 10/15/16 06:59 18:59 Intake Total 120 Balance 120 - Medications Medications: Current Medications Amlodipine Besylate (Norvasc) 5 mg PO HS [facility] Last Admin: 10/14/16 21:40 Dose: 5 mg Buspirone HCl (Buspar) 5 mg PO HS [facility] Clonazepam (Klonopin) 0.5 mg PO QID [facility] Last Admin: 10/15/16 09:34 Dose: Not Given Famotidine (Pepcid) 20 mg PO BID [facility] Last Admin: 10/15/16 10:05 Dose: Not Given Heparin Sodium (Porcine) (Heparin) 5,000 units SC Q8 [facility] Last Admin: 10/15/16 10:06 Dose: Not Given Nystatin (Nystatin Oral Susp) 5 ml PO QID [facility] Last Admin: 10/15/16 14:32 Dose: Not Given Paroxetine HCl (Paxil) 20 mg PO DAILY [facility] Last Admin: 10/15/16 10:12 Dose: 20 mg Rosuvastatin Calcium (Crestor) 5 mg PO HS [facility] Last Admin: 10/14/16 21:40 Dose: 5 mg - Labs Labs: 10/15/16 06:09 10/15/16 06:09 Attending/Attestation - Attestation I have personally seen and examined this patient.: Yes I have fully participated in the care of the patient.: Yes I have reviewed all pertinent clinical information, including history, physical exam and plan: Yes Notes (Text): 10/15/16 14:49 Pt with neg troponin \nl ef no effussion on echo follow up as out pt
--- NOTE | 2016-10-15 12:01 | CARD ---
APPROVED REPORT EXAM: Two-dimensional and M-mode echocardiogram with Doppler and color Doppler. Other Information Quality : GoodRhythm : NSR INDICATION Chest Pain Palpitations RISK FACTORS Hypertension Hyperlipidemia M-Mode DIMENSIONS RVDd1.24 (2.1-3.2cm)Left Atrium (MM)3.35 (2.5-4.0cm) IVSd0.81 (0.7-1.1cm)Aortic Root2.99 (2.2-3.7cm) LVDd5.01 (4.0-5.6cm)Aortic Cusp Exc.1.95 (1.5-2.0cm) PWd0.88 (0.7-1.1cm)FS (%) 31 % LVDs3.48 (2.0-3.8cm)LVEF (%)58 (>50%) Aortic Valve AoV Peak Oxgetaoh399.2cm/Marcus Peak GR.6mmHgAI P 1/2 Gpir756hu Mitral Valve MV E Lfsmchvp48.6cm/sMV A Jqzmesfo12.8cm/sE/A ratio0.7 TDI E/Lateral E'0.0E/Medial E'0.0 Tricuspid Valve TR Peak Itdulvbl343zz/sTR Peak Gr.57xsTyOIIJ96dmAz LEFT VENTRICLE The left ventricle is normal size. There is normal left ventricular wall thickness. The left ventricular systolic function is normal. The left ventricular ejection fraction is within the normal range. There is normal LV segmental wall motion. Transmitral Doppler flow pattern is Grade I-abnormal relaxation pattern. Normal left atrial pressure by Tissue Doppler. RIGHT VENTRICLE The right ventricle is normal size. The right ventricular systolic function is normal. ATRIA The left atrium size is normal. The interatrial septum is intact with no evidence for an atrial septal defect. AORTIC VALVE The aortic valve is normal in structure. There is trace to mild aortic regurgitation. MITRAL VALVE The mitral valve is normal in structure. There is no mitral valve regurgitation noted. TRICUSPID VALVE The tricuspid valve is normal in structure. There is trace to mild tricuspid regurgitation. PULMONIC VALVE The pulmonary valve is normal in structure. GREAT VESSELS The aortic root is normal in size. The IVC is normal in size and collapses >50% with inspiration. PERICARDIAL EFFUSION There is no pericardial effusion. <Conclusion> The left ventricular systolic function is normal. There is normal LV segmental wall motion. Transmitral Doppler flow pattern is Grade I-abnormal relaxation pattern. Normal left atrial pressure by Tissue Doppler. The right ventricular systolic function is normal. There is trace to mild aortic regurgitation. No pericardial effusion.
[2016-10-15 12:38] VITALS: RESP 20; TEMP 97.5; O2SAT 99
--- NOTE | 2016-10-15 14:23 | CARD ---
APPROVED REPORT EKG Measurement Heart [id number] [place] [id number] <Conclusion> Sinus rhythm with frequent premature atrial and ventricular complexes Nonspecific ST abnormality Abnormal ECG
[2016-10-15 14:26] LABS: RBC URINE 2 /hpf (0-3); URINE BILIRUBIN NEGATIVE (NEGATIVE); URINE BLOOD 2+ (NEGATIVE); URINE COLOR Yellow (YELLOW); URINE GLUCOSE (UA) NORMAL (Normal); URINE KETONE NEGATIVE (NEGATIVE); URINE LEUKOCYTE ESTERASE NEG Leu/uL (Negative); URINE PROTEIN NEGATIVE (NEGATIVE); URINE UROBILINOGEN NORMAL mg/dL (0.2-1.0); WBC URINE < 1 /hpf (0-5)
[2016-10-15] MEDS: Nystatin 100,000 Units/ml Oral Susp 5 ml UD PO SCH ×2 (14:32→15:05)
[2016-10-15 15:30] VITALS: BP 134/64; PULSE 60
--- NOTE | 2016-10-15 19:02 | CARD ---
APPROVED REPORT EKG Measurement Heart [id number] [place] 160P70 [id number] <Conclusion> Sinus bradycardia Otherwise normal ECG
--- NOTE | 2016-10-15 19:04 | CARD ---
APPROVED REPORT EKG Measurement Heart [id number] OR 166P61 [id number] <Conclusion> Sinus bradycardia Minimal voltage criteria for LVH, may be normal variant Borderline ECG
--- NOTE | 2016-10-15 21:06 | CP.PCM.DIS ---
<Amber Cuevas - Last Filed: 10/15/16 21:03> Provider - Provider Date of Admission: 10/14/16 03:22 Attending physician: lBayne Quintero MD Primary care physician: Dr. Carrasco Consults: Dr. Canseco (Psychiatrist) Dr. Carey (Ship Captain) Time Spent in preparation of Discharge (in minutes): 45 Diagnosis - Discharge Diagnosis (1) Palpitations Status: Resolved Comment: See hospital summary for more details. (2) Anxiety and depression Status: Chronic Comment: See hospital summary for more details. (3) Hypokalemia Status: Resolved Comment: See hospital summary for more details. (4) HTN (hypertension) Status: Chronic Comment: See hospital summary for more details. (5) Hyperlipidemia Status: Chronic Comment: See hospital summary for more details. Hospital Course - Lab Results Lab Results: Most Recent Lab Values WBC 5.9 K/uL (4.8-10.8) 10/15/16 06:09 RBC 4.71 Mil/uL (3.80-5.20) 10/15/16 06:09 Hgb 13.8 g/dL (11.0-16.0) 10/15/16 06:09 Hct 41.4 % (34.0-47.0) 10/15/16 06:09 MCV 87.9 fL (81.0-99.0) 10/15/16 06:09 MCH 29.3 pg (27.0-31.0) 10/15/16 06:09 MCHC 33.3 g/dL (33.0-37.0) 10/15/16 06:09 RDW 14.8 % (11.5-14.5) H 10/15/16 06:09 Plt Count 381 K/uL (130-400) 10/15/16 06:09 MPV 7.0 fL (7.2-11.7) L 10/15/16 06:09 Neut % (Auto) 38.6 % (50.0-75.0) L 10/15/16 06:09 Lymph % (Auto) 47.5 % (20.0-40.0) H 10/15/16 06:09 [place] % (Auto) 9.2 % (0.0-10.0) 10/15/16 06:09 Eos % (Auto) 3.5 % (0.0-4.0) 10/15/16 06:09 Baso % (Auto) 1.2 % (0.0-2.0) 10/15/16 06:09 Neut # 2.3 K/uL (1.8-7.0) 10/15/16 06:09 Lymph # 2.8 K/uL (1.0-4.3) 10/15/16 06:09 [place] # 0.5 K/uL (0.0-0.8) 10/15/16 06:09 Eos # 0.2 K/uL (0.0-0.7) 10/15/16 06:09 Baso # 0.1 K/uL (0.0-0.2) 10/15/16 06:09 Sodium 137 mmol/L (132-148) 10/15/16 06:09 Potassium 3.7 mmol/L (3.6-5.2) 10/15/16 06:09 Chloride 103 mmol/L (98-107) 10/15/16 06:09 Carbon Dioxide 24 mmol/L (22-30) 10/15/16 06:09 Anion Gap 14 (10-20) 10/15/16 06:09 BUN 11 mg/dL (7-17) 10/15/16 06:09 Creatinine 0.8 MG/DL (0.7-1.2) 10/15/16 06:09 Est GFR ( Amer) > 60 10/15/16 06:09 Est GFR (Non-Af Amer) > 60 10/15/16 06:09 Random Glucose 91 mg/dL (65-105) 10/15/16 06:09 Hemoglobin A1c 5.7 % (4.2-6.5) 10/14/16 11:07 Calcium 9.1 mg/dl (8.6-10.4) 10/15/16 06:09 Phosphorus 4.1 mg/dL (2.5-4.5) 10/15/16 06:09 Magnesium 2.1 mg/dL (1.6-2.3) 10/15/16 06:09 Total Bilirubin 0.7 mg/dL (0.2-1.3) 10/15/16 06:09 AST 23 U/L (14-36) 10/15/16 06:09 ALT 14 U/L (9-52) 10/15/16 06:09 Alkaline Phosphatase 97 U/L (38-126) 10/15/16 06:09 Total Creatine Kinase 111 U/L (30-135) 10/14/16 13:05 CK-MB (Mass) 0.45 ng/mL (0.0-3.38) 10/14/16 13:05 Troponin I 0.0170 ng/mL (0.00-0.120) 10/14/16 00:34 Troponin I, Quant < 0.0120 ng/mL (0.00-0.120) 10/14/16 13:05 Total Protein 7.0 g/dL (6.3-8.3) 10/15/16 06:09 Albumin 3.8 g/dL (3.5-5.0) 10/15/16 06:09 Globulin 3.2 gm/dL (2.2-3.9) 10/15/16 06:09 Albumin/Globulin Ratio 1.2 (1.0-2.1) 10/15/16 06:09 Triglycerides 59 mg/dL (0-149) 10/14/16 11:07 Cholesterol 207 mg/dL (0-199) H 10/14/16 11:07 LDL Cholesterol Direct 132 mg/dL (0-129) H 10/14/16 11:07 HDL Cholesterol 51 mg/dL (30-70) 10/14/16 11:07 Free T4 0.82 ng/dL (0.78-2.19) 10/14/16 11:07 TSH 3rd Generation 2.36 mIU/L (0.46-4.68) 10/14/16 11:07 Urine Color Yellow (YELLOW) 10/15/16 14:11 Urine Clarity Clear (Clear) 10/15/16 14:11 Urine pH 5.0 (5.0-8.0) 10/15/16 14:11 Ur Specific [place] 1.014 (1.003-1.030) 10/15/16 14:11 Urine Protein Negative mg/dL (NEGATIVE) 10/15/16 14:11 Urine Glucose (UA) Normal mg/dL (Normal) 10/15/16 14:11 Urine Ketones Negative mg/dL (NEGATIVE) 10/15/16 14:11 Urine Blood 2+ (NEGATIVE) H 10/15/16 14:11 Urine Nitrate Negative (NEGATIVE) 10/15/16 14:11 Urine Bilirubin Negative (NEGATIVE) 10/15/16 14:11 Urine Urobilinogen Normal mg/dL (0.2-1.0) 10/15/16 14:11 Ur Leukocyte Esterase Neg Maria Dolores/uL (Negative) 10/15/16 14:11 Urine WBC (Auto) < 1 /hpf (0-5) 10/15/16 14:11 Urine RBC (Auto) 2 /hpf (0-3) 10/15/16 14:11 Ur Squamous Epith Cells < 1 /hpf (0-5) 10/15/16 14:11 Hepatitis A IgM Ab Negative (NEGATIVE) 10/15/16 13:10 Hep Bs Antigen Negative (NEGATIVE) 10/15/16 13:10 Hep B Core IgM Ab Negative (NEGATIVE) 10/15/16 13:10 Hepatitis C Antibody Negative (NEGATIVE) 10/15/16 13:10 HIV 1&2 Antibody Screen Negative (NEGATIVE) 10/15/16 13:10 - Hospital Course Hospital Course: CC - " I am worried about my leg pain and palpitations" HPI - 71 y/o F c PMHx as listed below complains of anxiety p/w palpitations and leg burning x 3 hours. Patient states that she was at home in bed watching tv when she suddenly began having upper leg burning paresthesias and then began having palpitations. She said her legs "felt hot from the inside" from her knees up to her hips. She denies weakness, numbness or tingling. She got worried about this can then felt like her heart was beating fast and irregular. She then called [facility] and asked them what to do and they told her to come to the emergency room. Upon arrival to the emergency room these symptoms resolved. 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 She denies chest pain, fever/chills, headache, dyspnea, nausea, vomiting, abdominal pain, diarrhea/constipation or urinary complaints. She states she recently had a D/C done and they "left something in there" so she is planning to go back to surgery with Dr. Salazar to remove this item. She was unable to name what this item was. She reports being under a lot of stress recently. She states that she was diagnosed with a cardiac murmur at but never was on cardiac medication and never had surgery for this. She has never had a cardiac cath or a stress test performed. Patient was admitted to telemetry for palpitations and burning sensation in her legs. In the ED, her EKG showed sinus tachycardia, 112bpm, with nonspecific changes and frequent PVCs. Chest Xray showed no infiltrates, fracture, or pneumothorax. Patient was found to be hypokalemia. Once admitted, patients's hypokalemia was corrected with potassium chloride 20mg STAT, followed by a second dose of 20mg, and K-Dur 20Meq ER tablet which increased her potassium to 3.7. Cardiology was consulted- Dr. Carey ordered a stress test. Stress test was unable to be completed. Patient went for an echocardiongram which showed no acute findings. Psychiatry was consulted- Dr. Canseco. Dr. Canseco recommended the patient to follow strict at home medication schedule and avoid missing doses and quit smoking. Patient to follow up with Dr. Canseco as outpatient and with Dr. Carrasco, PMD, as outpatient. This is a summary of the hospital course. Please see chart for more details. Patient is stable for discharge home as per Dr. Trujillo. Please continue home medications and start new medication listed below. New Medication: Nystatin Oral Suspension, 5ml PO QID (4 times daily) Please follow up with your PMD, Dr. Carrasco, within one week of discharge. Please follow up with your Psychiatrist, Dr. Canseco, within one week of discharge. Please follow up with Dr. Hamzah Harrell within one week of discharge. These instructions were discussed and understood by the patient. If patient has any concerns, please return to ED. Discharge Exam - Head Exam Head Exam: ATRAUMATIC, NORMAL INSPECTION, NORMOCEPHALIC - Eye Exam Eye Exam: EOMI, Normal appearance - ENT Exam ENT Exam: Mucous Membranes Moist - Respiratory Exam Respiratory Exam: Clear to PA & Lateral, NORMAL BREATHING PATTERN, UNREMARKABLE. absent: Decreased Breath Sounds, Wheezes - Cardiovascular Exam Cardiovascular Exam: REGULAR RHYTHM, +S1, +S2 - GI/Abdominal Exam GI & Abdominal Exam: Normal Bowel Sounds, Soft, Unremarkable. absent: Tenderness - Extremities Exam Extremities exam: normal inspection - Neurological Exam Neurological exam: Alert, Oriented x3 - Psychiatric Exam Psychiatric exam: Anxious, Depressed - Skin Skin Exam: Dry, Intact, Normal Color, Warm Discharge Plan - Discharge Medications Prescriptions: Nystatin [Nystatin Oral Susp] 5 ml PO QID #1 bottle - Follow Up Plan Condition: FAIR Disposition: HOME/ ROUTINE Instructions: Nystatin (By mouth), Palpitations (DC), Heart Healthy Diet (DC) Additional Instructions: Patient is stable for discharge home as per Dr. Trujillo. Please continue home medications and start new medication listed below. New Medication: Nystatin Oral Suspension, 5ml PO QID (4 times daily) Please follow up with your PMD, Dr. Carrasco, within one week of discharge. Please follow up with your Psychiatrist, Dr. Canseco, within one week of discharge. Please follow up with Dr. Hamzah Harrell within one week of discharge. These instructions were discussed and understood by the patient. If patient has any concerns, please return to ED. Referrals: Mando Draper MD [Staff Provider] - <Arayn Trujillo - Last Filed: 10/16/16 09:15> Provider - Provider Date of Admission: 10/14/16 03:22 Attending physician: Blayne Quintero MD Hospital Course - Lab Results Lab Results: Most Recent Lab Values WBC 5.9 K/uL (4.8-10.8) 10/15/16 06:09 RBC 4.71 Mil/uL (3.80-5.20) 10/15/16 06:09 Hgb 13.8 g/dL (11.0-16.0) 10/15/16 06:09 Hct 41.4 % (34.0-47.0) 10/15/16 06:09 MCV 87.9 fL (81.0-99.0) 10/15/16 06:09 MCH 29.3 pg (27.0-31.0) 10/15/16 06:09 MCHC 33.3 g/dL (33.0-37.0) 10/15/16 06:09 RDW 14.8 % (11.5-14.5) H 10/15/16 06:09 Plt Count 381 K/uL (130-400) 10/15/16 06:09 MPV 7.0 fL (7.2-11.7) L 10/15/16 06:09 Neut % (Auto) 38.6 % (50.0-75.0) L 10/15/16 06:09 Lymph % (Auto) 47.5 % (20.0-40.0) H 10/15/16 06:09 [place] % (Auto) 9.2 % (0.0-10.0) 10/15/16 06:09 Eos % (Auto) 3.5 % (0.0-4.0) 10/15/16 06:09 Baso % (Auto) 1.2 % (0.0-2.0) 10/15/16 06:09 Neut # 2.3 K/uL (1.8-7.0) 10/15/16 06:09 Lymph # 2.8 K/uL (1.0-4.3) 10/15/16 06:09 [place] # 0.5 K/uL (0.0-0.8) 10/15/16 06:09 Eos # 0.2 K/uL (0.0-0.7) 10/15/16 06:09 Baso # 0.1 K/uL (0.0-0.2) 10/15/16 06:09 Sodium 137 mmol/L (132-148) 10/15/16 06:09 Potassium 3.7 mmol/L (3.6-5.2) 10/15/16 06:09 Chloride 103 mmol/L (98-107) 10/15/16 06:09 Carbon Dioxide 24 mmol/L (22-30) 10/15/16 06:09 Anion Gap 14 (10-20) 10/15/16 06:09 BUN 11 mg/dL (7-17) 10/15/16 06:09 Creatinine 0.8 MG/DL (0.7-1.2) 10/15/16 06:09 Est GFR ( Amer) > 60 10/15/16 06:09 Est GFR (Non-Af Amer) > 60 10/15/16 06:09 Random Glucose 91 mg/dL (65-105) 10/15/16 06:09 Hemoglobin A1c 5.7 % (4.2-6.5) 10/14/16 11:07 Calcium 9.1 mg/dl (8.6-10.4) 10/15/16 06:09 Phosphorus 4.1 mg/dL (2.5-4.5) 10/15/16 06:09 Magnesium 2.1 mg/dL (1.6-2.3) 10/15/16 06:09 Total Bilirubin 0.7 mg/dL (0.2-1.3) 10/15/16 06:09 AST 23 U/L (14-36) 10/15/16 06:09 ALT 14 U/L (9-52) 10/15/16 06:09 Alkaline Phosphatase 97 U/L (38-126) 10/15/16 06:09 Total Creatine Kinase 111 U/L (30-135) 10/14/16 13:05 CK-MB (Mass) 0.45 ng/mL (0.0-3.38) 10/14/16 13:05 Troponin I 0.0170 ng/mL (0.00-0.120) 10/14/16 00:34 Troponin I, Quant < 0.0120 ng/mL (0.00-0.120) 10/14/16 13:05 Total Protein 7.0 g/dL (6.3-8.3) 10/15/16 06:09 Albumin 3.8 g/dL (3.5-5.0) 10/15/16 06:09 Globulin 3.2 gm/dL (2.2-3.9) 10/15/16 06:09 Albumin/Globulin Ratio 1.2 (1.0-2.1) 10/15/16 06:09 Triglycerides 59 mg/dL (0-149) 10/14/16 11:07 Cholesterol 207 mg/dL (0-199) H 10/14/16 11:07 LDL Cholesterol Direct 132 mg/dL (0-129) H 10/14/16 11:07 HDL Cholesterol 51 mg/dL (30-70) 10/14/16 11:07 Free T4 0.82 ng/dL (0.78-2.19) 10/14/16 11:07 TSH 3rd Generation 2.36 mIU/L (0.46-4.68) 10/14/16 11:07 Urine Color Yellow (YELLOW) 10/15/16 14:11 Urine Clarity Clear (Clear) 10/15/16 14:11 Urine pH 5.0 (5.0-8.0) 10/15/16 14:11 Ur Specific [place] 1.014 (1.003-1.030) 10/15/16 14:11 Urine Protein Negative mg/dL (NEGATIVE) 10/15/16 14:11 Urine Glucose (UA) Normal mg/dL (Normal) 10/15/16 14:11 Urine Ketones Negative mg/dL (NEGATIVE) 10/15/16 14:11 Urine Blood 2+ (NEGATIVE) H 10/15/16 14:11 Urine Nitrate Negative (NEGATIVE) 10/15/16 14:11 Urine Bilirubin Negative (NEGATIVE) 10/15/16 14:11 Urine Urobilinogen Normal mg/dL (0.2-1.0) 10/15/16 14:11 Ur Leukocyte Esterase Neg Maria Dolores/uL (Negative) 10/15/16 14:11 Urine WBC (Auto) < 1 /hpf (0-5) 10/15/16 14:11 Urine RBC (Auto) 2 /hpf (0-3) 10/15/16 14:11 Ur Squamous Epith Cells < 1 /hpf (0-5) 10/15/16 14:11 Hepatitis A IgM Ab Negative (NEGATIVE) 10/15/16 13:10 Hep Bs Antigen Negative (NEGATIVE) 10/15/16 13:10 Hep B Core IgM Ab Negative (NEGATIVE) 10/15/16 13:10 Hepatitis C Antibody Negative (NEGATIVE) 10/15/16 13:10 HIV 1&2 Antibody Screen Negative (NEGATIVE) 10/15/16 13:10 Attending/Attestation - Attestation I have personally seen and examined this patient.: Yes I have fully participated in the care of the patient.: Yes I have reviewed all pertinent clinical information, including history, physical exam and plan: Yes Notes (Text): 10/16/16 09:14 Patient was seen and examined at bedside with the resident Patient clear for discharge by cardiology and psychiatry She has no new complaints She will be discharged to home and she'll follow-up with the primary medical doctor and the psychiatrist Discharge plan discussed with the patient and she verbalized understanding I agree with the discharge note by the resident
== END 2016-10-15 16:30 | disposition home or self-care (01) ==
LOC: C.ER 21:49 → C.6T 10-14 03:22
PROVIDERS: ADMIT Family Medicine; ATTEND Family Medicine
DX: F41.8 Other specified anxiety disorders (principal); I49.3 Ventricular premature depolarization; Z85.3 Personal history of malignant neoplasm of breast; J44.9 Chronic obstructive pulmonary disease, unspecified; I10 Essential (primary) hypertension; F17.200 Nicotine dependence, unspecified, uncomplicated; E87.6 Hypokalemia; E78.5 Hyperlipidemia, unspecified; Z88.0 Allergy status to penicillin
CPT/HCPCS: 36415; 71010; 80053; 80061; 80074; 81001; 82550; 83036; 83735; 84100; 84439; 84443; 84484; 85025; 86703; 87086; 93005; 93306; 99285; G0378

== ENCOUNTER 2016-12-25 11:54 | Emergency (ER) | payer MEDICARE, MEDICAID ==
[2016-12-25 11:55] VITALS: BMI 23.8
[2016-12-25 12:12] VITALS: BP 125/70; PULSE 56; RESP 18; TEMP 97.6; O2SAT 98
--- NOTE | 2016-12-25 12:34 | C.PDOC ---
History Of Present Illness 71 yr old female presents to the Er for evaluation of a big bite sustained to the right lower leg yesterday. Patient states she was in the balcony, sweeping. Patient states she was in the hospital getting routine outpatient blood test and wanted to get evaluated. Patient states she is allergic to multiple NSAIDs and declined medication in the ER. Denies fever, chills, nausea, vomiting, weakness or numbness. Time Seen by Provider: 12/25/16 12:30 Chief Complaint (Nursing): Abnormal Skin Integrity History Per: Patient History/Exam Limitations: no limitations Onset/Duration Of Symptoms: Days (1) Current Symptoms Are (Timing): Still Present Past Medical History Reviewed: Historical Data, Nursing Documentation, Vital Signs Vital Signs: Last Vital Signs Temp 97.6 F 12/25/16 12:12 Pulse 56 L 12/25/16 12:12 Resp 18 12/25/16 12:12 BP 125/70 12/25/16 12:12 Pulse Ox 98 12/25/16 12:43 - Medical History PMH: Anxiety, Arthritis, COPD (heavy smoker), Depression, HTN, Hypercholesterolemia, Malignancy (BREAST) Family History: States: No Known Family Hx - Social History Hx Tobacco Use: Yes Hx Alcohol Use: No Hx Substance Use: No - Immunization History Hx Tetanus Toxoid Vaccination: No Hx Influenza Vaccination: No Hx Pneumococcal Vaccination: No Review Of Systems Except As Marked, All Systems Reviewed And Found Negative. Constitutional: Negative for: Fever, Chills Gastrointestinal: Negative for: Nausea, Vomiting Neurological: Negative for: Weakness, Numbness Physical Exam - Physical Exam Appears: Non-toxic, No Acute Distress Skin: Warm, Dry, No Rash, Other ((+) 0.5 cm small wound to the right lower leg. No erythema. No drainage. ) Head: Atraumatic, Normacephalic Oral Mucosa: Moist Chest: Symmetrical, No Tenderness Cardiovascular: Rhythm Regular, No Murmur Respiratory: Normal Breath Sounds, No Rales, No Rhonchi, No Stridor, No Wheezing Extremity: Normal ROM, No Swelling Neurological/Psych: Oriented x3, Normal Speech, Normal Motor ED Course And Treatment O2 Sat by Pulse Oximetry: 98 (RA ) Pulse Ox Interpretation: Normal Medical Decision Making Medical Decision Making: noactive infection. minimal localized swelling. advise supportive tx. outpt f/u return precautions Disposition - Disposition Disposition: HOME/ ROUTINE Disposition Time: 12:33 Condition: STABLE Additional Instructions: please apply warm compresses, return to er with worsening symptoms or concerns. please see your doctor. Prescriptions: Bacitracin 1 each TP DAILY #1 packet Instructions: Insect Bite or Sting (ED) Forms: [employer] ([place]) - Clinical Impression Clinical Impression: Bug bite - Scribe Statement The provider has reviewed the documentation as recorded by the Silkeibjudith Carter Provider Attestation: All medical record entries made by the Shubham were at my direction and personally dictated by me. I have reviewed the chart and agree that the record accurately reflects my personal performance of the history, physical exam, medical decision making, and the department course for this patient. I have also personally directed, reviewed, and agree with the discharge instructions and disposition.
--- NOTE | 2016-12-25 12:35 | C.PDOC ---
Chief Complaint (Nursing): Abnormal Skin Integrity Past Medical History Vital Signs: Last Vital Signs Temp 97.6 F 12/25/16 12:12 Pulse 56 L 12/25/16 12:12 Resp 18 12/25/16 12:12 BP 125/70 12/25/16 12:12 Pulse Ox 98 12/25/16 12:12 - Medical History PMH: Anxiety, Arthritis, COPD (heavy smoker), Depression, HTN, Hypercholesterolemia, Malignancy (BREAST) Denies: Chronic Kidney Disease Family History: States: Unknown Family Hx - Social History Hx Tobacco Use: Yes Hx Alcohol Use: No Hx Substance Use: No - Immunization History Hx Tetanus Toxoid Vaccination: No Hx Influenza Vaccination: No Hx Pneumococcal Vaccination: No ED Course And Treatment O2 Sat by Pulse Oximetry: 98 Disposition - Disposition Forms: [employer] (Sinhala)
[2016-12-25] MEDS ORDERED: Bacitracin 500 Units/gm Oint Foilpak UD ONE (12:42)
== END 2016-12-25 12:52 | disposition home or self-care (01) ==
LOC: C.ER 11:54
DX: S80.861A Insect bite (nonvenomous), right lower leg, initial encounter (principal); W57.XXXA Bitten or stung by nonvenomous insect and other nonvenomous arthropods, initial encounter; Y93.89 Activity, other specified; Y92.89 Other specified places as the place of occurrence of the external cause

== ENCOUNTER 2017-01-21 14:04 | Emergency (ER) | payer MEDICARE, MEDICAID ==
[2017-01-21 14:05] VITALS: BMI 23.8
[2017-01-21 14:33] VITALS: BP 104/60; RESP 18; TEMP 97.8; O2SAT 98
--- NOTE | 2017-01-21 15:13 | C.PDOC ---
History Of Present Illness 71 y/o female presents to the ER c/o nausea and vomiting for a day. Patient was unclear about her recent D&C performed. Patient was on a hallway bed on a grain shipper and went to the bathroom to defecate and the monitor was turned off. Patient returned to her bed walking with a steady gait, but before the monitor was turned on, the patient became unresponsive. Patient was then moved to a main bed after being found unresponsive. Time Seen by Provider: 01/21/17 14:24 Chief Complaint (Nursing): Abdominal Pain History Per: Patient History/Exam Limitations: clinical condition Onset/Duration Of Symptoms: Days Current Symptoms Are (Timing): Still Present Severity: Moderate Past Medical History Reviewed: Historical Data, Nursing Documentation, Vital Signs Vital Signs: Last Vital Signs Temp 97.8 F 01/21/17 14:10 Pulse 0 L 01/21/17 19:23 Resp 18 01/21/17 14:10 BP 104/60 01/21/17 14:10 Pulse Ox 98 01/21/17 18:25 - Medical History PMH: Anxiety, Arthritis, COPD (heavy smoker), Depression, HTN, Hypercholesterolemia, Malignancy (BREAST) Denies: Chronic Kidney Disease Family History: States: Unknown Family Hx - Social History Hx Tobacco Use: Yes Hx Alcohol Use: No Hx Substance Use: No - Immunization History Hx Tetanus Toxoid Vaccination: No Hx Influenza Vaccination: No Hx Pneumococcal Vaccination: No Review Of Systems Review Of Systems: ROS cannot be obtained secondary to pt's inabilty to answer questions. Physical Exam - Physical Exam Skin: Dry Head: Atraumatic Eye(s): bilateral: Other (Pinpoint, unresponsive pupils) Cardiovascular: Rhythm Irregular (Faint, irregular jugular pulses. ), JVD, Other (No heart sounds.) Respiratory: Normal Breath Sounds, No Rales, No Rhonchi, No Wheezing Gastrointestinal/Abdominal: Soft, No Tenderness Pulses: Left Carotid: Decreased (Faint), Right Carotid: Decreased (Faint) ED Course And Treatment O2 Sat by Pulse Oximetry: 98 Critical Care Time - Critical Care Note Total Time (in mins): 90 Documented critical care: time excludes all time spent performing seperately billable procedures. Medical Decision Making Medical Decision Making: Bedside cardiac echo performed with pericardial effusion with minimal heart wall motion. Patient accessed to be in acute cardiac arrest. Cardiac code called, ACLS protocals from 14:36 until 15:04. Significant for persistent VFIB arrest. TIME OF : 15:04 JVD noted during arrest concerning for pericardial effusion (h/o breast CA so ? recurrence and mets?) or acute PE, but RV on US noted not dilated and no pericardial effusion noted on unofficial bedside card echo. TPA deferred for low susp of PE. 17:00. Discussed with patient's brother who will come to the ER to see the patient. Also discussed with Dr. Carrasco who also recently spoke to the film painter. Disposition Doctor Will See Patient In The: Hospital - Disposition Disposition: WITH WITHOUT AUTOPSY Disposition Time: 16:00 Condition: Forms: [employer] (Japanese) - Clinical Impression Clinical Impression: Cardiac arrest - Scribe Statement The provider has reviewed the documentation as recorded by the Scribe Tova franco All medical record entries made by the Scribe were at my direction and personally dictated by me. I have reviewed the chart and agree that the record accurately reflects my personal performance of the history, physical exam, medical decision making, and the department course for this patient. I have also personally directed, reviewed, and agree with the discharge instructions and disposition.
[2017-01-21 15:23] VITALS: PULSE 0
== END 2017-01-21 20:02 ==
LOC: C.ER 14:04
DX: I46.9 Cardiac arrest, cause unspecified (principal)